=== PATIENT | male | born 1965 | race Two or more races ===

== ENCOUNTER 2021-08-11 14:15 | Emergency (ER) | payer OTHER ==
[~2021-08-11] VITALS: Ht 167.6 cm; Wt 71.7 kg
[2021-08-11] MEDS ORDERED: MEDROLPACK PO (18:48)
[2021-08-11] MEDS ORDERED: FLONASE ALLERG9.9 ML NASAL (18:48)
[2021-08-11] MEDS ORDERED: SINUS RINSE ST1 EACH NASAL (18:48)
== END 2021-08-11 19:03 | disposition home or self-care (01) ==
LOC: ER 14:15
DX: U07.1 COVID-19 (principal); J02.9 Acute pharyngitis, unspecified